=== PATIENT | female | born 1985 | race Caucasian/White ===

== ENCOUNTER 2018-02-14 17:54 | Inpatient (IN) | payer OTHER ==
[2018-02-14] MEDS ORDERED: LACTATED RINGER'S 1,000 ML IV (18:16)
[2018-02-14] MEDS ORDERED: METHYLERGONOVINE 0.2 MG INJ IM ×2 (18:30→22:30)
[2018-02-14] MEDS ORDERED: CARBOPROST 250 MCG INJ IM ×2 (18:30→22:30)
[2018-02-14] MEDS ORDERED: MISOPROSTOL 200 MCG TAB PR ×2 (18:30→22:30)
[2018-02-14] MEDS ORDERED: LIDOCAINE 1% (MPF) 30 ML INJ INJ (18:30)
[2018-02-14] MEDS ORDERED: OXYTOCIN 30 UNITS/LR 500 ML IV ×4 (18:30→22:30)
[2018-02-14] MEDS ORDERED: IBUPROFEN 600 MG TAB PO (18:30)
[2018-02-14] MEDS: LACTATED RINGER'S 1,000 ML IV* ×2 (18:35→22:21)
[2018-02-14 18:36] LABS: ADD MAN DIFF? NO
[2018-02-14 18:39] LABS: WHITE BLOOD COUNT 11.8 10^3/ul (4.8-10.8)
[2018-02-14 18:39] LABS: BASOPHILS % 0.3 % (0.0-2.0); EOSINOPHILS # 0.1 10^3/ul (0.0-0.5); EOSINOPHILS % 0.8 % (0.0-7.0); HEMATOCRIT 36.2 % (37.0-47.0); HEMOGLOBIN 12.1 g/dl (12.0-16.0); LYMPHOCYTES # 1.9 10^3/ul (0.8-2.9); LYMPHOCYTES % 16.2 % (15.0-51.0); MEAN CORPUSCULAR HEMOGLOBIN 29.6 pg (29.0-33.0); MEAN CORPUSCULAR HGB CONC 33.4 g/dl (32.0-37.0); MEAN CORPUSCULAR VOLUME 88.5 fl (82.0-101.0); MEAN PLATELET VOLUME 11.3 fl (7.4-10.4); MONOCYTE # 0.7 10^3/ul (0.3-0.9); MONOCYTES % 5.9 % (0.0-11.0); NEUTROPHIL # 8.9 10^3/ul (1.6-7.5); NEUTROPHILS % 75.8 % (39.0-77.0); PLATELET COUNT 223 10^3/UL (140-415); RED BLOOD COUNT 4.09 10^6/ul (4.20-5.40); RED CELL DISTRIBUTION WIDTH 12.5 % (11.5-14.5)
[2018-02-14 18:57] LABS: INR 0.94; PROTIME 12.7 Sec (11.9-14.9)
[2018-02-14 18:58] LABS: PARTIAL THROMBOPLASTIN TIME 27.7 Sec (23.0-35.0)
[2018-02-14 19:31] LABS: HEPATITIS B SURFACE ANTIGEN NEGATIVE (NEGATIVE)
[2018-02-14] MEDS: AMPICILLIN 2 GM/NS (PMX) 100 ML IV (19:58)
[2018-02-14] MEDS ORDERED: LIDOCAINE 0.5% (SDV) 50 ML INJ INJ (20:00)
[2018-02-14] MEDS: BUTORPHANOL 2 MG INJ IV (21:09)
[2018-02-14] MEDS: OXYTOCIN 30 UNITS/LR 500 ML IV ×2 (21:20→22:54)
[2018-02-14] MEDS ORDERED: AMPICILLIN 1 GM/NS (PMX) 50 ML IV (22:30)
[2018-02-14] MEDS ORDERED: HYDROCODONE/APAP (5/325) TAB PO (22:30)
[2018-02-14] MEDS: IBUPROFEN 600 MG TAB PO (23:52)
[2018-02-14] MEDS: LANOLIN 7 GM TUBE TOP (23:53)
[2018-02-15] MEDS: IBUPROFEN 600 MG TAB PO ×4 (05:53→23:34)
[2018-02-15] MEDS: LACTATED RINGER'S 1,000 ML IV* ×3 (06:21→18:53)
[2018-02-15 08:33] LABS: ADD MAN DIFF? NO
[2018-02-15 08:42] LABS: BASOPHILS % 0.3 % (0.0-2.0); EOSINOPHILS # 0.2 10^3/ul (0.0-0.5); EOSINOPHILS % 1.1 % (0.0-7.0); HEMATOCRIT 32.7 % (37.0-47.0); HEMOGLOBIN 10.8 g/dl (12.0-16.0); LYMPHOCYTES # 1.8 10^3/ul (0.8-2.9); LYMPHOCYTES % 12.2 % (15.0-51.0); MEAN CORPUSCULAR HEMOGLOBIN 29.6 pg (29.0-33.0); MEAN CORPUSCULAR VOLUME 89.6 fl (82.0-101.0); MEAN PLATELET VOLUME 11.6 fl (7.4-10.4); MONOCYTE # 0.9 10^3/ul (0.3-0.9); MONOCYTES % 6.4 % (0.0-11.0); NEUTROPHIL # 11.7 10^3/ul (1.6-7.5); NEUTROPHILS % 79.2 % (39.0-77.0); PLATELET COUNT 184 10^3/UL (140-415); RED BLOOD COUNT 3.65 10^6/ul (4.20-5.40); RED CELL DISTRIBUTION WIDTH 12.6 % (11.5-14.5)
[2018-02-15 08:42] LABS: WHITE BLOOD COUNT 14.8 10^3/ul (4.8-10.8)
[2018-02-15] MEDS: INFLUENZA VIRUS VACCINE 0.5 ML (DISPENSING) IM* (11:45)
[2018-02-15 15:53] LABS: RAPID PLASMA REAGIN NONREACTIVE (NR)
[2018-02-16] MEDS: IBUPROFEN 600 MG TAB PO ×2 (05:38→11:37)
[2018-02-16] MEDS: LACTATED RINGER'S 1,000 ML IV* (06:21)
[2018-02-16] MEDS: DIPHTH/TET/ACEL PERTUSS (ADULT) 0.5 ML VIAL IM* (09:00)
== END 2018-02-16 15:20 | disposition home or self-care (01) | DRG 807 ==
LOC: OBT 17:54 → L-D 17:54 → OBT 18:05 → L-D 18:05 → PP1 23:35
PROVIDERS: Obstetrics & Gynecology
PROC: 10E0XZZ Delivery of Products of Conception, External Approach (ICD-10-PCS; principal; 2018-02-14)
PROC: 4A1HXCZ Monitoring of Products of Conception, Cardiac Rate, External Approach (ICD-10-PCS; 2018-02-14)
PROC: 3E0234Z Introduction of Serum, Toxoid and Vaccine into Muscle, Percutaneous Approach (ICD-10-PCS; 2018-02-15)
DX: O69.81X0 Labor and delivery complicated by cord around neck, without compression, not applicable or unspecified (principal); Z37.0 Single live birth; Z3A.37 37 weeks gestation of pregnancy; Z23 Encounter for immunization
CPT/HCPCS: 85025; 85610; 85730; 86592; 86762; 86850; 86900; 86901; 87340; 90686; 90715; 99464